=== PATIENT | male | born 1985 | race Caucasian/White ===

== ENCOUNTER 2020-09-07 14:10 | Outpatient (CLI) | payer OTHER ==
--- NOTE | 2020-09-07 14:42 | XRAY Report ---
PROCEDURE: Lumbar Spine 2 View INDICATIONS: LUMBAR RADICULOPATHY TECHNIQUE: views of the lumbar spine were acquired. COMPARISON: None. FINDINGS: Bones: There are 5 nonrib-bearing lumbar-type vertebral bodies of normal height and alignment. Disc h eight loss at L4-L5 and L5-S1 with associated degenerative endplate change and facet hypertrophy from L3-L4 through L5-S1. No suspicious lytic or blastic osseous lesion. Soft tissues: Overlying bowel gas pattern is normal. No suspicious soft tissue calcifications. IMPRESSION: Lower lumbar spine degenerative changes, mild. Reviewed by: Byron Hubbard MD on 09/07/2020 2:40 PM PDT Approved by: Byron Hubbard MD on 09/07/2020 2:40 PM PDT Station ID: [id number]
== END 2020-09-07 14:11 | disposition home or self-care (01) ==
LOC: DI 14:10
PROVIDERS: ATTEND Physician Assistant Medical
DX: M47.816 Spondylosis without myelopathy or radiculopathy, lumbar region (principal); M51.36 Other intervertebral disc degeneration, lumbar region; M47.817 Spondylosis without myelopathy or radiculopathy, lumbosacral region; M51.37 Other intervertebral disc degeneration, lumbosacral region
CPT/HCPCS: 72100